=== PATIENT | male | born 1980 | race Caucasian/White ===

== ENCOUNTER 2018-10-11 12:02 | Emergency (ER) | payer OTHER ==
[~2018-10-11] VITALS: Ht 165.1 cm; Wt 83.9 kg
--- NOTE | 2018-10-11 12:19 | NUR ---
PT BIBSELF FROM HOME FOR EPIGASTRIC PAIN X 3 DAYS, PT AAOX4, RESPIRAITONS EVEN AND UNLABORED, NO SOB, NAD NOTED, PT ON MONITOR, VSS, PENDING MD RYDER
[2018-10-11] MEDS ORDERED: HYDROCODONE/APAP 10/325MG 1 EA TABLET PO ONE (12:30)
[2018-10-11] MEDS ORDERED: ONDANSETRON 4 MG TAB.RAPDIS SL ONE (12:30)
[2018-10-11] MEDS ORDERED: MAG HYDROX/AL HYDROX/SIMETH 30 ML UDC PO ONE (12:30)
[2018-10-11] MEDS ORDERED: LIDOCAINE 2% JEL UROJET 10 ML MM ONE (12:30)
[2018-10-11] MEDS ORDERED: MAG HYDROX/AL HYDROX/SIMETH 30 ML UDC ONE (12:37)
[2018-10-11] MEDS ORDERED: LIDOCAINE VISCOUS 2% UD 15 ML UDC ONE (12:37)
[2018-10-11] MEDS ORDERED: HYDROCODONE/APAP 10/325MG 1 EA TABLET ONE (12:37)
[2018-10-11] MEDS ORDERED: ONDANSETRON 4 MG TAB.RAPDIS ONE ×2 (12:38→12:46)
[2018-10-11 12:47] LABS: BASOPHILS % (AUTO) 0.5 % (0.0-2.0); HEMATOCRIT 47 % (39-51); HEMOGLOBIN 15.5 g/dL (13.5-17.5); LYMPHOCYTES # (AUTO) 2.5 /CMM (0.8-4.8); LYMPHOCYTES % (AUTO) 38.5 % (20.0-44.0); MEAN CORPUSCULAR HGB CONC 34 g/dl (31.0-36.0); MEAN CORPUSCULAR VOLUME 90 fL (80-96); MONOCYTES # (AUTO) 0.4 /CMM (0.1-1.30); MONOCYTES % (AUTO) 6.8 % (2.0-12.0); NEUTROPHILS # (AUTO) 3.3 /CMM (1.8-8.9); NEUTROPHILS % (AUTO) 50.2 % (43.0-81.0); PLATELET COUNT (AUTO) 316 /CMM (150-450); RED BLOOD CELL COUNT(AUTO) 5.18 MIL/uL (4.5-6.0); WHITE BLOOD COUNT (AUTO) 6.5 K/uL (4.3-11.0)
[2018-10-11 12:59] LABS: CALCIUM, SERUM 9.1 mg/dL (8.5-10.1); CREATININE 0.9 mg/dL (0.6-1.3)
[2018-10-11] MEDS ORDERED: LIDOCAINE VISCOUS 2% UD 15 ML UDC PO ONE (13:00)
[2018-10-11 13:05] LABS: BILIRUBIN,DIRECT 0.1 mg/dL (0.0-0.2); BILIRUBIN,TOTAL 0.5 mg/dL (0.2-1.0); TOTAL PROTEIN, SERUM 7.4 g/dL (6.4-8.2)
--- NOTE | 2018-10-11 14:02 | NUR ---
Patient discharged to home in stable condition. Written and verbal after care instructions given. Patient verbalizes understanding of instruction.
[2018-10-11 14:03] VITALS: BP 130/69
== END 2018-10-11 14:05 | disposition home or self-care (01) ==
LOC: ER 12:02
DX: R10.13 Epigastric pain (principal)
CPT/HCPCS: 36415; 76705; 80048; 80076; 83690; 85025; 99284; A4606; Z7610; Q0162

== ENCOUNTER 2019-05-31 02:03 | Emergency (ER) | payer OTHER ==
[~2019-05-31] VITALS: Ht 182.9 cm; Wt 129.7 kg
[2019-05-31 02:27] VITALS: BP 119/82
[2019-05-31] MEDS ORDERED: IBUPROFEN 600 MG TABLET PO ONE ×2 (02:48→03:00)
--- NOTE | 2019-05-31 03:05 | NUR ---
Patient discharged to home in stable condition. Written and verbal after care instructions given. Patient verbalizes understanding of instruction. Pt ambulatory with a steady gait
== END 2019-05-31 03:06 | disposition home or self-care (01) ==
LOC: ER 02:06
DX: J06.9 Acute upper respiratory infection, unspecified (principal)

== ENCOUNTER 2021-01-04 21:43 | Emergency (ER) | payer OTHER ==
[~2021-01-04] VITALS: Ht 182.9 cm; Wt 136.5 kg
--- NOTE | 2021-01-04 22:01 | NUR ---
pt to er bed 10 c/o medial abdominal pain since yesterday. patient states that he is unable to keep food down and is throwing up everything and having constant diarrhea. patient states that he is taking new protein supplement. patient is aaox4. no sob. breathing evenly and unlabored on room air. connected to the monitor.
[2021-01-04] MEDS ORDERED: ONDANSETRON HCL/PF 4 MG/2 ML VIAL ONE (22:24)
[2021-01-04] MEDS ORDERED: MORPHINE SULFATE INJ 4 MG/ML DISP.SYRIN ONE (22:25)
[2021-01-04] MEDS ORDERED: ONDANSETRON HCL/PF 4 MG/2 ML VIAL IVP ONE (22:30)
[2021-01-04] MEDS ORDERED: MORPHINE SULFATE INJ 2 MG/ML DISP.SYRIN IV ONE (22:30)
[2021-01-04] MEDS ORDERED: IV NS 0.9% 1,000 ML BAG IV ONE (22:30)
[2021-01-04 22:51] LABS: BASOPHILS % (AUTO) 0.4 % (0.0-2.0); EOSINOPHILS % (AUTO) 4.8 % (0.0-6.0); HEMATOCRIT 47 % (39-51); HEMOGLOBIN 15.4 g/dL (13.5-17.5); LYMPHOCYTES # (AUTO) 1.9 /CMM (0.8-4.8); LYMPHOCYTES % (AUTO) 21.4 % (20.0-44.0); MEAN CORPUSCULAR HGB CONC 33 g/dl (31.0-36.0); MEAN CORPUSCULAR VOLUME 89 fL (80-96); MONOCYTES # (AUTO) 0.4 /CMM (0.1-1.30); MONOCYTES % (AUTO) 4.6 % (2.0-12.0); NEUTROPHILS # (AUTO) 5.9 /CMM (1.8-8.9); NEUTROPHILS % (AUTO) 68.8 % (43.0-81.0); PLATELET COUNT (AUTO) 320 /CMM (150-450); RED BLOOD CELL COUNT(AUTO) 5.23 MIL/uL (4.5-6.0); WHITE BLOOD COUNT (AUTO) 8.7 K/uL (4.3-11.0)
[2021-01-04] MEDS ORDERED: CT SWABBABLE VALVE TRANS SET 1 EA INFUS.SET MC ONE (23:02)
[2021-01-04] MEDS ORDERED: IOHEXOL-300 100 ML VIAL IV ONE (23:02)
[2021-01-04] MEDS ORDERED: IV NS 0.9% 250 ML IV ONE (23:02)
[2021-01-04 23:06] LABS: CALCIUM, SERUM 8.7 mg/dL (8.5-10.1); POTASSIUM 4.1 mmol/L (3.5-5.1)
[2021-01-04 23:12] LABS: BILIRUBIN,DIRECT 0.1 mg/dL (0.0-0.2); BILIRUBIN,TOTAL 0.7 mg/dL (0.2-1.0); TOTAL PROTEIN, SERUM 7.5 g/dL (6.4-8.2)
[2021-01-05 01:54] LABS: BILIRUBIN,URINE NEGATIVE (NEGATIVE); COLOR,URINE YELLOW (YELLOW); LEUKOCYTE ESTERASE ,URINE NEGATIVE (NEGATIVE); NITRITE, URINE NEGATIVE (NEGATIVE); PROTEIN,URINE NEGATIVE (NEGATIVE); UGLUCOSE NEGATIVE (NEGATIVE); UROBILINOGEN,URINE 0.2 EU/dL (0.2)
[2021-01-05 01:58] LABS: BACTERIA,URINE None seen /HPF (None Seen); RBC,URINE 0-2 /HPF (0-2); SQUAMOUS EPITHELIAL CELL,UR Few /HPF (None Seen); WBC,URINE 0-2 /HPF (0-3)
[2021-01-05] MEDS ORDERED: ACETAMINOPHEN ES 500 MG TABLET ONE (02:04)
--- NOTE | 2021-01-05 02:08 | NUR ---
Patient discharged to home in stable condition. Written and verbal after care instructions given. Patient verbalizes understanding of instruction.
--- NOTE | 2021-01-05 02:08 | NUR ---
IV removed. Catheter intact and site benign. Pressure and 4x4 applied to site. No bleeding noted.
[2021-01-05 03:06] VITALS: BP 132/82
== END 2021-01-05 01:06 | disposition home or self-care (01) ==
LOC: ER 21:45
DX: R10.11 Right upper quadrant pain (principal); R10.31 Right lower quadrant pain; R11.2 Nausea with vomiting, unspecified; R19.7 Diarrhea, unspecified; R00.0 Tachycardia, unspecified
CPT/HCPCS: 36415; 74177; 80048; 80076; 81001; 83690; 85025; 96361; 96374; 96375; 99285; J2270; J2405; J7030; J7050; Q9967

== ENCOUNTER 2022-02-09 06:00 | Emergency (ER) | payer OTHER ==
[~2022-02-09] VITALS: Ht 182.9 cm; Wt 129.7 kg
--- NOTE | 2022-02-09 06:13 | NUR ---
BIBS C/O FEVER AND SORETHROAT X1 DAY. PATIENT TEMP AT TRIAGE IS 98.4. PATIENT ALERT AND ORIENTED X3. AMBULATORY WITH NON LABORED [facility] BED 07 AWAITING MD RYDER.
--- NOTE | 2022-02-09 07:15 | NUR ---
COVID PCR SWAB OBTAINED AND SENT TO LAB
[2022-02-09] MEDS ORDERED: ACETAMINOPHEN 325 MG TABLET ONE (07:48)
[2022-02-09] MEDS ORDERED: ACETAMINOPHEN 325 MG TABLET PO ONE (08:00)
[2022-02-09 08:04] VITALS: BP 132/80
--- NOTE | 2022-02-09 08:04 | NUR ---
Patient discharged to home in stable condition. Written and verbal after care instructions given. Patient verbalizes understanding of instruction.
== END 2022-02-09 08:04 | disposition home or self-care (01) ==
LOC: ER 06:01
DX: U07.1 COVID-19 (principal); Z60.2 Problems related to living alone
CPT/HCPCS: 71045-TC

== ENCOUNTER 2022-11-05 01:33 | Emergency (ER) | payer OTHER ==
[~2022-11-05] VITALS: Ht 182.9 cm; Wt 169.6 kg
--- NOTE | 2022-11-05 02:05 | NUR ---
Dr. Frank at triage area assessing the pt.
--- NOTE | 2022-11-05 02:06 | NUR ---
Coughing started 2 weeks ago and get worst 2 days ago. Taking OTC meds but with no relief. Able expectorate phlegm, greenish in colored as verbalized by patient. Having difficulty of breathing. AAOX4. Positioned pt in comfortable position. Warm blanket provided. Vitals checked.
--- NOTE | 2022-11-05 02:07 | NUR ---
Pt feeling pain at upper respiratory area when coughing.
[2022-11-05] MEDS ORDERED: ACETAMINOPHEN 325 MG TABLET ONE (02:53)
[2022-11-05] MEDS ORDERED: ACETAMINOPHEN 325 MG TABLET PO ONE (03:00)
--- NOTE | 2022-11-05 03:27 | NUR ---
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
[2022-11-05] MEDS ORDERED: BENZ-13 PO (04:03)
--- NOTE | 2022-11-05 04:41 | NUR ---
Patient discharged to home in stable condition. Written and verbal after care instructions given. Patient verbalizes understanding of instruction. Patient refused to sign the discharged notes.
[2022-11-05 04:43] VITALS: BP 110/75
== END 2022-11-05 04:44 | disposition home or self-care (01) ==
LOC: ER 01:35
DX: B34.9 Viral infection, unspecified (principal); Z60.2 Problems related to living alone
CPT/HCPCS: 71045-TC

== ENCOUNTER 2023-07-05 04:29 | Emergency (ER) | payer OTHER ==
[~2023-07-05] VITALS: Ht 182.9 cm; Wt 126.6 kg
[~2023-07-05 04:29] MED LIST: BENZ-13 PO
[2023-07-05] MEDS ORDERED: SUMATRIPTAN SUCCINATE 6 MG/0.5 ML VIAL SQ ONE ×2 (04:48→05:00)
[2023-07-05] MEDS ORDERED: METOCLOPRAMIDE HCL 10 MG/2 ML VIAL ONE (04:48)
[2023-07-05] MEDS ORDERED: diphenhydrAMINE HCL 50 MG/ML VIAL ONE (04:48)
[2023-07-05] MEDS ORDERED: IV NS 0.9% 1,000 ML BAG IV ONE (05:00)
[2023-07-05] MEDS ORDERED: diphenhydrAMINE HCL 50 MG/ML VIAL IV ONE (05:00)
[2023-07-05] MEDS ORDERED: METOCLOPRAMIDE HCL 10 MG/2 ML VIAL IV ONE (05:00)
[2023-07-05] MEDS ORDERED: KETOROLAC TROMETHAMINE INJ 30 MG/ML VIAL ONE (05:28)
[2023-07-05] MEDS ORDERED: KETOROLAC TROMETHAMINE INJ 30 MG/ML VIAL IV ONE (05:30)
[2023-07-05 05:53] LABS: BASOPHILS % (AUTO) 0.3 % (0.0-2.0); EOSINOPHILS # (AUTO) 0.1 K/uL (0.0-0.7); EOSINOPHILS % (AUTO) 1.5 % (0.0-6.0); HEMATOCRIT 44 % (39-51); HEMOGLOBIN 14.6 g/dL (13.5-17.5); LYMPHOCYTES # (AUTO) 2.6 K/uL (0.8-4.8); MEAN CORPUSCULAR HEMOGLOBIN 30 PG (26.0-33.0); MEAN CORPUSCULAR HGB CONC 33 g/dl (31.0-36.0); MEAN CORPUSCULAR VOLUME 89 fL (80-96); MONOCYTES # (AUTO) 0.6 K/uL (0.1-1.30); MONOCYTES % (AUTO) 7.2 % (2.0-12.0); NEUTROPHILS # (AUTO) 5.1 K/uL (1.8-8.9); PLATELET COUNT (AUTO) 339 K/uL (150-450); RED BLOOD CELL COUNT(AUTO) 4.93 MIL/uL (4.5-6.0); RED CELL DISTRIBUTION WIDTH 12.6 % (11.5-15.0); WHITE BLOOD COUNT (AUTO) 8.5 K/uL (4.3-11.0)
[2023-07-05 06:06] LABS: CALCIUM, SERUM 8.8 mg/dL (8.5-10.1); POTASSIUM 3.5 mmol/L (3.5-5.1)
[2023-07-05 06:12] LABS: ALBUMIN 3.7 g/dL (3.4-5.0); BILIRUBIN,TOTAL 0.4 mg/dL (0.2-1.0); TOTAL PROTEIN, SERUM 7.1 g/dL (6.4-8.2)
[2023-07-05 06:38] VITALS: BP 137/84; TEMP 98.5; O2SAT 98
[2023-07-06] MEDS ORDERED: NAPR-1009 PO (06:36)
== END 2023-07-05 06:38 | disposition home or self-care (01) ==
LOC: ER 04:35
DX: R42 Dizziness and giddiness (principal); R51.9 Headache, unspecified; R11.2 Nausea with vomiting, unspecified; Z60.2 Problems related to living alone
CPT/HCPCS: 99285; 96374; 70450; 96375; 96361; 85025; 83690; 36415; 80053; 96372; J1200; J3030; J2765; J1885; J7030

== ENCOUNTER 2023-07-06 06:05 | Emergency (ER) | payer SELFPAY ==
[~2023-07-06] VITALS: Ht 182.9 cm; Wt 127.0 kg
[2023-07-06 06:16] VITALS: BP 129/87; TEMP 98; O2SAT 97
[2023-07-06] MEDS ORDERED: NAPR-1009 PO (06:36)
[2023-07-06] MEDS ORDERED: NAPROXEN 250 MG TABLET ONE (06:38)
[2023-07-06] MEDS ORDERED: NAPROXEN 500 MG TABLET PO SCH (07:00)
== END 2023-07-06 06:44 | disposition home or self-care (01) ==
LOC: ER 06:09
DX: G44.209 Tension-type headache, unspecified, not intractable (principal); Z60.2 Problems related to living alone

== ENCOUNTER 2023-10-15 08:31 | Emergency (ER) | payer OTHER ==
[~2023-10-15] VITALS: Ht 182.9 cm; Wt 122.9 kg
[~2023-10-15 08:31] MED LIST changes: +NAPR-1009 PO
[2023-10-15] MEDS ORDERED: IBUPROFEN 600 MG TABLET PO ONE (09:00)
[2023-10-15] MEDS ORDERED: IBUPROFEN 600 MG TABLET ONE (09:02)
[2023-10-15] MEDS ORDERED: IBUP-1955 PO (10:25)
[2023-10-15 10:41] VITALS: BP 138/94; TEMP 98.2; O2SAT 100
== END 2023-10-15 10:41 | disposition home or self-care (01) ==
LOC: ER 08:38
DX: S93.402A Sprain of unspecified ligament of left ankle, initial encounter (principal); Z60.2 Problems related to living alone; X50.1XXA Overexertion from prolonged static or awkward postures, initial encounter; Y93.89 Activity, other specified; Y92.89 Other specified places as the place of occurrence of the external cause; Y99.8 Other external cause status
CPT/HCPCS: 73610-TC

== ENCOUNTER 2025-06-07 19:14 | Emergency (ER) | payer OTHER ==
[~2025-06-07] VITALS: Ht 182.9 cm; Wt 122.0 kg
[~2025-06-07 19:14] MED LIST changes: +IBUP-1955 PO
[2025-06-07 19:46] VITALS: TEMP 98.4
[2025-06-07] MEDS: ONDANSETRON HCL/PF 4 MG/2 ML VIAL IVP ONE (20:00)
[2025-06-07] MEDS: FAMOTIDINE/PF INJ 20 MG/2 ML VIAL IV ONE (20:00)
[2025-06-07] MEDS: LIDOCAINE VISCOUS 2% UD 15 ML UDC MM ONE (20:00)
[2025-06-07] MEDS: KETOROLAC TROMETHAMINE 15 MG/ML VIAL IV ONE (20:00)
[2025-06-07] MEDS: IV NS 0.9% 1,000 ML BAG IV ONE (20:00)
[2025-06-07] MEDS ORDERED: ONDANSETRON HCL/PF 4 MG/2 ML VIAL ONE (20:00)
[2025-06-07] MEDS: ACETAMINOPHEN ES 500 MG TABLET PO ONE (20:00)
[2025-06-07] MEDS ORDERED: KETOROLAC TROMETHAMINE 15 MG/ML VIAL ONE (20:00)
[2025-06-07] MEDS: MAG HYDROX/AL HYDROX/SIMETH 30 ML UDC PO ONE (20:00)
[2025-06-07] MEDS ORDERED: LIDOCAINE VISCOUS 2% UD 15 ML UDC ONE (20:01)
[2025-06-07] MEDS ORDERED: MAG HYDROX/AL HYDROX/SIMETH 30 ML UDC ONE (20:01)
[2025-06-07] MEDS ORDERED: FAMOTIDINE/PF INJ 20 MG/2 ML VIAL IV ONE (20:01)
[2025-06-07] MEDS ORDERED: ACETAMINOPHEN ES 500 MG TABLET ONE (20:01)
[2025-06-07 20:30] LABS: PLATELET COUNT (AUTO) 278 K/uL (150-450); RED BLOOD CELL COUNT(AUTO) 5.25 MIL/uL (4.5-6.0); RED CELL DISTRIBUTION WIDTH 12.7 % (11.5-15.0); WHITE BLOOD COUNT (AUTO) 8.8 K/uL (4.3-11.0)
[2025-06-07 20:40] LABS: CALCIUM, SERUM 9.0 mg/dL (8.5-10.1); CREATININE 1.0 mg/dL (0.6-1.3); SODIUM SERUM 140.0 mmol/L (136-145); UREA NITROGEN, BLOOD 16.0 mg/dL (7-18)
[2025-06-07 20:43] LABS: ASPARTATE AMINOTRANSFERASE 13.0 U/L (15-37); TOTAL PROTEIN, SERUM 7.4 g/dL (6.4-8.2)
[2025-06-07] MEDS ORDERED: FAMO20TA80 PO (21:00)
[2025-06-07] MEDS ORDERED: ONDA4TAB5 PO (21:00)
[2025-06-07 21:20] VITALS: BP 118/79; O2SAT 98
== END 2025-06-07 21:21 | disposition home or self-care (01) ==
LOC: ER 19:20
DX: K21.9 Gastro-esophageal reflux disease without esophagitis (principal); R10.11 Right upper quadrant pain; R11.2 Nausea with vomiting, unspecified; R19.7 Diarrhea, unspecified; Z79.899 Other long term (current) drug therapy; Z60.2 Problems related to living alone
CPT/HCPCS: 99285; 96374; 76705; 96375; 96361; 85025; 80048; 83690; 80076; 36415; J1885; J1308; J2405; J7030

== ENCOUNTER 2025-09-09 14:09 | Inpatient (IN) | payer OTHER ==
[~2025-09-09] VITALS: Ht 180.3 cm; Wt 126.1 kg
[~2025-09-09 14:09] MED LIST changes: +FAMO20TA80 PO; +ONDA4TAB5 PO
[2025-09-09 14:38] LABS: APPEARANCE,URINE CLEAR (CLEAR); BLOOD, URINE TRACE-INTA Ery/uL (NEGATIVE); LEUKOCYTE ESTERASE ,URINE NEGATIVE (NEGATIVE); NITRITE, URINE NEGATIVE (NEGATIVE); UGLUCOSE NEGATIVE (NEGATIVE)
[2025-09-09 14:49] LABS: PLATELET COUNT (AUTO) 297 K/uL (150-450); RED BLOOD CELL COUNT(AUTO) 4.83 MIL/uL (4.5-6.0); RED CELL DISTRIBUTION WIDTH 13.2 % (11.5-15.0); WHITE BLOOD COUNT (AUTO) 7.3 K/uL (4.3-11.0)
[2025-09-09 14:56] LABS: CALCIUM, SERUM 8.4 mg/dL (8.5-10.1); CREATININE 0.7 mg/dL (0.6-1.3); SODIUM SERUM 139 mmol/L (136-145); UREA NITROGEN, BLOOD 11 mg/dL (7-18)
[2025-09-09 15:02] LABS: ASPARTATE AMINOTRANSFERASE 17 U/L (15-37); TOTAL PROTEIN, SERUM 7.1 g/dL (6.4-8.2)
[2025-09-09 15:06] LABS: ADD URINE CULTURE YES; HYALINE CASTS, URINE Rare /LPF (None Seen); SQUAMOUS EPITHELIAL CELL,UR 0-2 /HPF (None Seen)
[2025-09-09] MEDS: IV NS 0.9% 1,000 ML BAG IV ONE (15:30)
[2025-09-09] MEDS ORDERED: IV NS 0.9% 250 ML IV ONE (17:33)
[2025-09-09] MEDS ORDERED: CT SWABBABLE VALVE TRANS SET 1 EA INFUS.SET MC ONE (17:33)
[2025-09-09] MEDS ORDERED: IOHEXOL-300 100 ML VIAL IV ONE (17:33)
[2025-09-09 21:40] VITALS: BP 118/87; TEMP 98.1; O2SAT 97
[2025-09-09] MEDS ORDERED: MORPHINE SULFATE INJ 4 MG/ML DISP.SYRIN IV PRN (22:30)
[2025-09-09] MEDS ORDERED: TEMAZEPAM 15 MG CAPSULE PO PRN (22:30)
[2025-09-09] MEDS ORDERED: ONDANSETRON HCL/PF 4 MG/2 ML VIAL IVP PRN (22:30)
[2025-09-09] MEDS ORDERED: MAGNESIUM HYDROXIDE 30 ML UDC PO PRN (22:30)
[2025-09-09] MEDS ORDERED: MAG HYDROX/AL HYDROX/SIMETH 30 ML UDC PO PRN (22:30)
[2025-09-09] MEDS ORDERED: Z GUARD REMEDY 4 OZ OINT TP PRN (22:30)
[2025-09-09] MEDS ORDERED: ACETAMINOPHEN 325 MG TABLET PO PRN (22:30)
[2025-09-09] MEDS: PANTOPRAZOLE 40 MG VIAL IV SCH (22:37)
[2025-09-09] MEDS: IV NS 0.9% 1,000 ML IV PRN (22:38)
[2025-09-10 07:34] LABS: PLATELET COUNT (AUTO) 279 K/uL (150-450); RED BLOOD CELL COUNT(AUTO) 4.79 MIL/uL (4.5-6.0); RED CELL DISTRIBUTION WIDTH 13.0 % (11.5-15.0); WHITE BLOOD COUNT (AUTO) 4.4 K/uL (4.3-11.0)
[2025-09-10 08:00] VITALS: BP 120/99; TEMP 98.4; O2SAT 96
[2025-09-10 11:03] LABS: CALCIUM, SERUM 8.0 mg/dL (8.5-10.1); CREATININE 0.7 mg/dL (0.6-1.3); PHOSPHORUS 2.8 mg/dL (2.5-4.9); SODIUM SERUM 142.0 mmol/L (136-145); UREA NITROGEN, BLOOD 8.0 mg/dL (7-18)
[2025-09-10 11:12] LABS: LDL 43.0 mg/dL (0-99)
[2025-09-10] MEDS: POTASSIUM CHLORIDE 20 MEQ TAB.PRT.SR PO ONE (11:59)
== END 2025-09-10 15:00 | disposition home or self-care (01) | DRG 282 ==
LOC: ER 14:16 → MED 17:35
PROVIDERS: ADMIT Nurse Practitioner Acute Care; ATTEND Nurse Practitioner Acute Care
DX: K85.30 Drug induced acute pancreatitis without necrosis or infection (principal); A08.4 Viral intestinal infection, unspecified; E66.01 Morbid (severe) obesity due to excess calories; K76.0 Fatty (change of) liver, not elsewhere classified; T38.3X5A Adverse effect of insulin and oral hypoglycemic [antidiabetic] drugs, initial encounter; Y92.039 Unspecified place in apartment as the place of occurrence of the external cause; Z68.39 Body mass index [BMI] 39.0-39.9, adult; R73.03 Prediabetes; K21.9 Gastro-esophageal reflux disease without esophagitis; Z79.85 Long-term (current) use of injectable non-insulin antidiabetic drugs; Z79.899 Other long term (current) drug therapy
CPT/HCPCS: 36415; 76705-TC; 80048-TC; 80061-TC; 80076-TC; 81001; 83690-TC; 83735-TC; 84100-TC; 84443-TC; 84484-TC; 85025-TC; 87086-TC; A4223; G0378; J2470; J7030; J7050; Q9967